=== PATIENT | female | born 1990 | race African-American/Black ===

== ENCOUNTER 2017-10-11 09:09 | Inpatient (IN) | payer MEDICAID ==
[2017-09-27 11:14] LABS: APPEARANCE,URINE CLEAR; BILIRUBIN, URINE NEGATIVE (NEGATIVE); COLOR,URINE PALE YELLOW; GLUCOSE, URINE (UA) NEGATIVE (NEGATIVE); KETONES,URINE NEGATIVE (NEGATIVE); LEUKOCYTE ESTERASE ,URINE 1+ (NEGATIVE); NITRITE,URINE NEGATIVE (NEGATIVE); PH,URINE 7 (4.5-8.0); PROTEIN,URINE NEGATIVE (NEGATIVE); UROBILINOGEN,URINE NORMAL (NORMAL)
[2017-09-27 11:15] LABS: HEMATOCRIT 31.8 % (37.0-47.0); HEMOGLOBIN 10.6 G/DL (12.0-16.0); MEAN CORPUSCULAR VOLUME 111 FL (80-99); PLATELET COUNT 169 K/UL (150-450); RED BLOOD COUNT 2.86 M/UL (4.20-5.40); RED CELL DISTRIBUTION WIDTH 12.1 % (11.6-14.8); WHITE BLOOD COUNT 2.8 K/UL (4.8-10.8)
[2017-09-27 11:39] LABS: ANION GAP 5 mmol/L (5-15); BLOOD UREA NITROGEN 13 mg/dL (7-18); CALCIUM 8.9 MG/DL (8.5-10.1); CARBON DIOXIDE 31 MMOL/L (21-32); CHLORIDE 105 MMOL/L (98-107); CREATININE 0.8 MG/DL (0.55-1.30); SODIUM 141 MMOL/L (136-145)
--- NOTE | 2017-09-27 11:47 | Diagnostic Imaging Report ---
Indication: Preoperative evaluation Technique: XRAY Chest 2v Comparison: None Findings: Heart size and mediastinal contours within normal limits. A right chest wall Mediport is noted with its catheter tip at the region of the cavoatrial junction. There is no focal airspace consolidation, pleural effusion or pneumothorax. No acute osseous abnormality identified. A small metallic density focus is noted projecting over the left breast, possibly biopsy clip. IMPRESSION: No radiographic evidence of acute cardiopulmonary disease. Right chest wall Mediport in place. Likely biopsy clip projecting over the left breast. Correlate with clinical/procedural history.
--- NOTE | 2017-10-10 11:15 | Pre-op HX & Phy Repo 2 SIG ---
SCHEDULED FOR SURGERY: October 11, 2017. HISTORY OF PRESENT ILLNESS: The patient is a 27-year-old female in overall good health, who presented early this year with a left breast mass. Imaging revealed three adjacent masses in the upper outer quadrant of the left breast and core biopsy x3 revealed invasive ductal carcinoma in all three specimens. There were no suspicious axillary or supraclavicular lymph nodes and clinically the patient had a 3 x 4 cm mass in the left upper outer quadrant that was not fixed. Marker studies revealed that she was estrogen receptor positive, progesterone receptor positive, and HER2 3+ positive. She received neoadjuvant chemotherapy with the last chemotherapy on September 06, 2017. The left breast upper outer quadrant mass is no longer palpable. She is scheduled to undergo left breast partial mastectomy with preoperative ultrasound needle localization and left axillary lymph node biopsy. MEDICATIONS: Neupogen at home for neutropenia, white count recently 2800. ALLERGIES: None. OPERATIONS: None. She is nulliparous. PHYSICAL EXAMINATION: GENERAL: The patient is well developed, well nourished, in no distress, 5 feet 7 inches, 170 pounds. HEENT: Within normal limits. LUNGS: Clear. HEART: Regular rhythm. BREASTS: With suggestion of lump in the 2 to 3 o'clock position of the left breast. ABDOMEN: Soft. PELVIC: Per primary care physician. RECTAL: Per primary care physician. EXTREMITIES: Without edema. NEUROLOGIC: Physiologic. IMPRESSION: Invasive ductal carcinoma, left breast. PLAN: I had a full discussion with the patient regarding the nature of her condition, the nature of the surgery, indications, alternatives, options, and risks including potential need for postoperative chemotherapy, need for radiation therapy postoperatively, bleeding, infection, recurrence, distortion in shape, contour, and appearance of the breast, scarring, axillary drainage, deep vein thrombosis despite prophylaxis, etc. All questions have been answered. She understands and agrees to proceed with left breast partial mastectomy with preoperative needle localization and left axillary lymph node biopsy. Juvenal Tao M.D. DR: DAMIEN JOB#: [id number] CC: VALENTIN
[~2017-10-11] VITALS: Ht 167.6 cm; Wt 62.6 kg
[2017-10-11] VITALS (13 sets, daily range): BP systolic 105–121; BP diastolic 53–80
[~2017-10-11 09:09] MED LIST: NKM
[2017-10-11 10:03] LABS: HEMATOCRIT 32.2 % (37.0-47.0); HEMOGLOBIN 11.2 G/DL (12.0-16.0); MEAN CORPUSCULAR VOLUME 109 FL (80-99); PLATELET COUNT 158 K/UL (150-450); RED BLOOD COUNT 2.95 M/UL (4.20-5.40); RED CELL DISTRIBUTION WIDTH 10.8 % (11.6-14.8); WHITE BLOOD COUNT 2.6 K/UL (4.8-10.8)
[2017-10-11] MEDS ORDERED: LUPRON DEPOT45 MG IM (10:13)
[2017-10-11] MEDS ORDERED: NEUPOGEN300 MCG/1 IJ (10:13)
--- NOTE | 2017-10-11 11:35 | Pre-Procedure Note/Attestation ---
Pre-Procedure Note/Attestation Complete Prior to Procedure Planned Procedure: left Procedure Narrative: left breast partial mastectomy with pre-operative needle localization and left axillary lymph node biopsy Indications for Procedure Pre-Operative Diagnosis: invasive ductal carcinoma left breast Attestation I attest that I discussed the nature of the procedure; its benefits; risks and complications; and alternatives (and the risks and benefits of such alternatives ), prior to the procedure, with the patient (or the patient's legal textile designs sales representative). I attest that, if there was a reasonable possibility of needing a blood transfusion, the patient (or the patient's legal textile designs sales representative) was given the [facility] standardized written summary, pursuant to the Regan Betty Blood Safety Act ([place] Health and Safety Code # 1645, as amended). I attest that I re-evaluated the patient just prior to the surgery and that there has been no change in the patient's H&P, except as documented below:none Juvenal Tao MD Oct 11, 2017 11:35
[2017-10-11] MEDS ORDERED: EPINEPHrine 1mg/1ml Amp ONE (12:11)
[2017-10-11] MEDS ORDERED: Lidocaine 1% 10mg/ml/Epi 0.005mg/ml 30ml vial INJ ONE (12:11)
[2017-10-11] MEDS ORDERED: Bupivacaine 0.5% Inj 30 ml vial INJ ONE (12:11)
[2017-10-11] MEDS ORDERED: fentaNYL 100 mcg/2 mL IV ONE ×2 (12:19→12:24)
[2017-10-11] MEDS ORDERED: Propofol 200mg/20ml IV ONE (12:20)
[2017-10-11] MEDS ORDERED: Zemuron 50mg/5ml Inj IV ONE (12:20)
[2017-10-11] MEDS ORDERED: Lidocaine 1% MPF 10mg/ml 5ml ONE (12:24)
[2017-10-11] MEDS ORDERED: LR 1000ml 1,000 ML IVLG SCH (13:24)
--- NOTE | 2017-10-11 13:24 | Anethesia Preoperative Eval ---
Anesthesia Pre-op PMH/ROS General Date of Evaluation: Oct 11, 2017 Time of Evaluation: 12:15 Anesthesiologist: ASA Score: ASA 3 Mallampati Score Class I : Soft palate, uvula, fauces, pillars visible Class II: Soft palate, uvula, fauces visible Class III: Soft palate, base of uvula visible Class IV: Only hard plate visible Mallampati Classification: Class II Surgeon: ruiz Diagnosis: left breast carcinoma Surgical Procedure: left breast partial mastectomy, left axillary lymph node biopsy Anesthesia History: none Family History: no anesthesia problems Allergies: Coded Allergies: No Known Allergies (Unverified , 10/11/17) Past Medical History Cardiovascular: Denies: HTN, CAD, NE, valve dz, arrhythmia, other Pulmonary: Denies: asthma, COPD, JUDIE, other Gastrointestinal/Genitourinary: Denies: GERD, CRI, ESRD, other Neurologic/Psychiatric: Denies: dementia, CVA, depression/anxiety, TIA, other Endocrine: Denies: DM, hypothyroidism, steroids, other HEENT: Denies: cataract (L), cataract (R), glaucoma, CHILKOOT (L), CHILKOOT (R), other Hematology/Immune: Reports: anemia, other - anemia, leukopenia; Denies: DVT, bleeding disorder Musculoskeletal/Integumentary: Denies: OA, RA, DJD, DDD, edema, other PMH Narrative: left breast cancer s/p chemotherapy Anesthesia Pre-op Phys. Exam Physician Exam Last Vital Signs Date Time Temp Pulse Resp B/P (MAP) Pulse Ox O2 Delivery O2 Flow Rate FiO2 10/11/17 10:04 Room Air 10/11/17 10:00 98.0 80 18 115/72 (86) 99 98.0 Constitutional: NAD Cardiovascular: RRR Respiratory: CTA Gastrointestinal: S/NT/ND Airway Exam Mallampati Score: Class I MO: full ROM: full Teeth: intact Dentures: no upper, no lower Anesthesia Pre-op A/P Labs Hematology Test 10/11/17 09:54 White Blood Count 2.6 K/UL (4.8-10.8) L Red Blood Count 2.95 M/UL (4.20-5.40) L Hemoglobin 11.2 G/DL (12.0-16.0) L Hematocrit 32.2 % (37.0-47.0) L Mean Corpuscular Volume 109 FL (80-99) H Mean Corpuscular Hemoglobin 37.9 PG (27.0-31.0) H Mean Corpuscular Hemoglobin Concent 34.7 G/DL (32.0-36.0) Red Cell Distribution Width 10.8 % (11.6-14.8) L Platelet Count 158 K/UL (150-450) Mean Platelet Volume 6.9 FL (6.5-10.1) Neutrophils (%) (Auto) % (45.0-75.0) Lymphocytes (%) (Auto) % (20.0-45.0) Monocytes (%) (Auto) % (1.0-10.0) Eosinophils (%) (Auto) % (0.0-3.0) Basophils (%) (Auto) % (0.0-2.0) Differential Total Cells Counted 100 Neutrophils % (Manual) 38 % (45-75) L Lymphocytes % (Manual) 42 % (20-45) Monocytes % (Manual) 6 % (1-10) Eosinophils % (Manual) 13 % (0-3) H Basophils % (Manual) 1 % (0-2) Band Neutrophils 0 % (0-8) Platelet Estimate Adequate Platelet Morphology Normal Hypochromasia 1+ Anisocytosis 1+ Macrocytosis 1+ Spherocytes 1+ Urine Test Test 10/11/17 09:20 Urine HCG, Qualitative Negative (NEGATIVE) Risk Assessment & Plan Assessment: asa 3 Plan: ETGA Status Change Before Surgery: No Pre-Antibiotics Drug: ancef 2 grams Given Within 1 Hr of Incision: Yes Time Given: 12:45 Valerie Gomez M.D. Oct 11, 2017 13:24
--- NOTE | 2017-10-11 13:27 | Immediate Post-Op Evaluation ---
Immediate Post-Op Evalulation Immediate Post-Op Evalulation Procedure: left breast partial mastectomy, left axillary lymph node biopsy Date of Evaluation: Oct 11, 2017 Time of Evaluation: 14:25 IV Fluids: LR 500ml Blood Products: 0 Estimated Blood Loss: 10ml Urinary Output: 0 Blood Pressure Systolic: 121 Blood Pressure Diastolic: 53 Pulse Rate: 90 Respiratory Rate: 18 O2 Sat by Pulse Oximetry: 100 Temperature (Fahrenheit): 97.2 Pain Score (1-10): 8 Nausea: No Vomiting: No Complications none Patient Status: awake, patent, none Hydration Status: adequate Drug: ancef 2 grams Given Within 1 Hr of Incision: Yes Time Given: 12:45 Valerie Gomez M.D. Oct 11, 2017 13:27
[2017-10-11] MEDS ORDERED: DiphenhydrAMINE 50mg/ml Inj IVP PRN (13:30)
[2017-10-11] MEDS ORDERED: Midazolam 2mg/2ml Inj IVP PRN (13:30)
[2017-10-11] MEDS ORDERED: fentaNYL 100 mcg/2 mL IV PRN (13:30)
[2017-10-11] MEDS ORDERED: Neostigmine 1mg/ml 10ml Inj ONE (14:13)
--- NOTE | 2017-10-11 14:28 | Brief Operative Note ---
Immediate Post Operative Note Operative Note Pre-op Diagnosis: invasive ductal carcinoma left breast Procedure: left breast partial mastectomy with pre-op needle localization and left axillary lymph node biopsy Post-op Diagnosis: same Post-op Diagnosis: same as pre-op Findings: consistent w/pre-op dx studies Surgeon: ruiz Anesthesiologist: Anesthesia: general Specimen: yes - left breast tissue, left axillary lymph nodes Complications: none Condition: stable Fluids: see anesthesia record Estimated Blood Loss: minimal Drains: MELODY Implant(s) used?: No Juvenal Tao MD Oct 11, 2017 14:28
[2017-10-11] MEDS: Hydromorphone 0.5mg/0.5ml inj IVP PRN ×3 (14:42→15:34)
--- NOTE | 2017-10-11 15:51 | 48 Hour Post Anesthesia Eval ---
Post Anesthesia Evaluation Procedure: left breast partial mastectomy, left axillary lymph node biopsy Date of Evaluation: Oct 11, 2017 Time of Evaluation: 15:35 Blood Pressure Systolic: 114 0: 72 Pulse Rate: 80 Respiratory Rate: 14 Temperature (Fahrenheit): 97.6 O2 Sat by Pulse Oximetry: 100 Airway: patent Nausea: No Vomiting: No Pain Intensity: 2 Hydration Status: adequate Mental Status/LOC: patient returned to baseline Post-Anesthesia Complications: none Follow-up care needed: N/A Valerie Gomez M.D. Oct 11, 2017 15:51
[2017-10-11] MEDS ORDERED: D5 1/2NS w/KCl 20mEq 1,000 ML IV SCH (17:00)
--- NOTE | 2017-10-11 17:30 | Operative Note - Dictated ---
DATE OF OPERATION: 10/11/2017 SURGEON: Juvenal Tao M.D. SENIOR PASTOR: None. ANESTHESIOLOGIST: Dr. Valerie Gomez. TYPE OF ANESTHESIA: General endotracheal. PREOPERATIVE DIAGNOSIS: Invasive ductal carcinoma, left breast. POSTOPERATIVE DIAGNOSIS: Invasive ductal carcinoma, left breast. OPERATION PERFORMED: Left breast partial mastectomy with preoperative needle localization and left axillary lymph node biopsy. DESCRIPTION OF PROCEDURE: The patient was taken to the operating room and under general endotracheal anesthesia with sequential compression device stockings in place and having received intravenous antibiotics, the patient was prepped and draped in the usual fashion incorporating the left upper extremity in the sterile field. There were 2 wires placed in the upper outer quadrant of the left breast for two adjacent lesions. The lesions were not palpable as a result of neoadjuvant chemotherapy preoperatively. A curvilinear left lateral breast incision was made achieving hemostasis with cautery. Flaps were dissected circumferentially and the wires brought through into the field. The entire sector of tissue was resected down to the chest wall achieving hemostasis with cautery. The specimen was oriented with suture markers placed anterior, superior, and medial. The pathologist inked the tissue and cut it revealing the presence of the lesions with apparent good margins. The field was irrigated with saline. Hemostasis was secured. The incision was closed with interrupted 3-0 Vicryl subcutaneous deep dermal sutures followed by continuous 4-0 Monocryl subcuticular suture. Then, a transverse left axillary incision was made achieving hemostasis with cautery. The clavipectoral fascia was incised. There were two small lymph nodes evident that were resected using clips and cautery for hemostasis. The pathology confirmed the presence of lymph nodes. There were no abnormal findings. The field was irrigated and hemostasis was seen to be secured. The clavipectoral fascia was closed with interrupted 3-0 Vicryl, the subcutaneous tissues closed with interrupted 3-0 Vicryl, and skin closed with continuous 4-0 Monocryl subcuticular suture. Before closure, a 19-mm round Dmitry drain was placed into the axilla through a separate inferior stab incision and sutured to the skin with a 2-0 nylon skin suture. Both incisions were covered with tincture of benzoin followed by half-inch Steri-Strips and dry sterile dressing. Final sponge and needle counts were correct. A surgical brassiere was placed after the surgery was completed. The patient tolerated the procedure well and left the operating room in good condition. Juvenal Tao M.D. DR: Pauline JOB#: [id number] CC:
[2017-10-11] MEDS: ceFAZolin 1gm/50ml Premix 50 ML IV SCH (18:04)
[2017-10-11] MEDS: Norco 5mg/325mg tab ORAL PRN (22:04)
[2017-10-11] MEDS: HYDROmorphone 1mg/ml Carpuject SUBQ PRN (23:29)
[2017-10-12] VITALS: BP 111/74
[2017-10-12] MEDS: ceFAZolin 1gm/50ml Premix 50 ML IV SCH (00:30)
[2017-10-12] MEDS: HYDROmorphone 1mg/ml Carpuject SUBQ PRN ×3 (03:44→15:04)
[2017-10-12 04:00] VITALS: BP 112/67
[2017-10-12 06:01] LABS: BASOPHILS % (AUTO) 0.2 % (0.0-2.0); EOSINOPHILS % (AUTO) 0.1 % (0.0-3.0); HEMATOCRIT 29.2 % (37.0-47.0); HEMOGLOBIN 10.2 G/DL (12.0-16.0); LYMPHOCYTES % (AUTO) 11.2 % (20.0-45.0); MEAN CORPUSCULAR VOLUME 109 FL (80-99); MONOCYTES % (AUTO) 6.2 % (1.0-10.0); NEUTROPHILS % (AUTO) 82.3 % (45.0-75.0); PLATELET COUNT 142 K/UL (150-450); RED BLOOD COUNT 2.67 M/UL (4.20-5.40); RED CELL DISTRIBUTION WIDTH 10.3 % (11.6-14.8); WHITE BLOOD COUNT 7.8 K/UL (4.8-10.8)
[2017-10-12 08:00] VITALS: BP 134/82
--- NOTE | 2017-10-12 09:16 | General Progress Note ---
Progress Note Progress Note AVSS Required SQ Dilaudid for analgesia - Swisher not effective yet. Up to bathroom. MELODY drain with no output - has filled with air at times left breast and axilla incisions clean with intact steristrips, minimal swelling WBC 7800 (leukopenic pre-op due to chemotherapy despite Neupogen Imp. Pain control issues require parenteral meds Plan: Apply large size surgical brassiere MELODY drain to continuous wall suction as needed continue in-patient care d/c IV fluids and Ancef Juvenal Tao MD Oct 12, 2017 09:16
[2017-10-12 12:00] VITALS: BP 110/64
[2017-10-12] MEDS ORDERED: NS Irrig 1000ml ONE (12:00)
[2017-10-12] MEDS ORDERED: Dexamethasone 4mg/ml vial ONE (12:00)
[2017-10-12] MEDS ORDERED: LR 1000ml ONE (12:00)
[2017-10-12] MEDS ORDERED: Sterile Water Irrig 1000ml IRRIG ONE (12:00)
[2017-10-12] MEDS ORDERED: Glycopyrrolate 0.2mg/ml 1ml Vial ONE (12:00)
[2017-10-12] MEDS: Norco 5mg/325mg tab ORAL PRN ×2 (13:18→21:36)
[2017-10-12 16:00] VITALS: BP 117/75
[2017-10-12 20:00] VITALS: BP 115/73
[2017-10-13] VITALS: BP 117/71
[2017-10-13] MEDS: Norco 5mg/325mg tab ORAL PRN ×2 (03:47→09:14)
[2017-10-13 04:27] VITALS: BP 108/73
[2017-10-13 06:29] LABS: HEMATOCRIT 30.3 % (37.0-47.0); HEMOGLOBIN 10.4 G/DL (12.0-16.0); MEAN CORPUSCULAR VOLUME 111 FL (80-99); PLATELET COUNT 143 K/UL (150-450); RED BLOOD COUNT 2.74 M/UL (4.20-5.40); RED CELL DISTRIBUTION WIDTH 10.4 % (11.6-14.8); WHITE BLOOD COUNT 3.3 K/UL (4.8-10.8)
[2017-10-13 08:00] VITALS: BP 118/81
--- NOTE | 2017-10-13 08:46 | General Progress Note ---
Progress Note Progress Note AVSS Improved with no need for parenteral analgesics. Incisions clean, new steristrips applied to axilla MELODY 18cc serosang WBC down 3300 (pre-admission suppressed due to chemotherapy) Imp. Improved Plan: Discharge supplies/limitations/instructions discussed/provided f/u 10/17 Rx [place] 5/325 #24 (no ibuprofen due to low platelet count) Juvenal Tao MD Oct 13, 2017 08:46
[2017-10-13] MEDS ORDERED: NORCO 5-325 TA1 EACH ORAL (09:42)
--- NOTE | 2017-10-14 10:33 | Discharge Summary ---
Discharge Summary Hospital Course Date of Admission Oct 11, 2017 at 14:20 Date of Discharge Oct 13, 2017 at 10:48 Admitting Diagnosis HPI HISTORY OF PRESENT ILLNESS: The patient is a 27-year-old female in overall good health, who presented early this year with a left breast mass. Imaging revealed three adjacent masses in the upper outer quadrant of the left breast and core biopsy x3 revealed invasive ductal carcinoma in all three specimens. There were no suspicious axillary or supraclavicular lymph nodes and clinically the patient had a 3 x 4 cm mass in the left upper outer quadrant that was not fixed. Marker studies revealed that she was estrogen receptor positive, progesterone receptor positive, and HER2 3+ positive. She received neoadjuvant chemotherapy with the last chemotherapy on September 06, 2017. The left breast upper outer quadrant mass is no longer palpable. Procedures OPERATION PERFORMED: Left breast partial mastectomy with preoperative needle localization and left axillary lymph node biopsy. Hospital Course She was admitted on 10/11/2017 and underwent Left breast partial mastectomy with preoperative needle localization and left axillary lymph node biopsy. She tolerated procedure well. Post- operatively she required Dilaudid SQ for pain as [place] was not effective. MELODY drain was kept in place. She was given IV hydration and Ancef. On post-op day 2, she had better pain control with no need for parenteral analgesics AVSS Incisions clean, new steristrips applied to axilla MELODY 18cc serosang WBC down 3300 (pre-admission suppressed due to chemotherapy) Patient Discharged supplies/limitations/instructions discussed/provided f/u 10/17 Rx [place] 5/325 #24 (no ibuprofen due to low platelet count) PREOPERATIVE DIAGNOSIS: Invasive ductal carcinoma, left breast. POSTOPERATIVE DIAGNOSIS: Invasive ductal carcinoma, left breast. OPERATION PERFORMED: Left breast partial mastectomy with preoperative needle localization and left axillary lymph node biopsy. --I have been assigned to complete a discharge summary on this account, I was not involved with the patient mangement. --Sang Recinos NP Discharge Discharge Disposition Patient was discharged to Home () Lyn Recinos NP Oct 14, 2017 10:33
== END 2017-10-13 10:48 | disposition home or self-care (01) | DRG 363 ==
LOC: SUR 09:09 → 3E 14:20
PROC: 07B60ZX Excision of Left Axillary Lymphatic, Open Approach, Diagnostic (ICD-10-PCS; 2017-10-11)
PROC: 0HBU0ZZ Excision of Left Breast, Open Approach (ICD-10-PCS; principal; 2017-10-11 12:00)
DX: C50.412 Malignant neoplasm of upper-outer quadrant of left female breast (principal); Z17.0 Estrogen receptor positive status [ER+]
CPT/HCPCS: 36415; 71046; 80048; 81001; 81025; 84703; 85007; 85025; 85610; 85730; 94003; 94150; J2405; J2710